=== PATIENT | female | born 2000 | race Caucasian/White ===

== ENCOUNTER 2023-09-11 07:36 | Emergency (ER) | payer BC ==
[~2023-09-11] VITALS: Ht 162.6 cm; Wt 100.0 kg
[2023-09-11 07:45] VITALS: TEMP 97.8
[2023-09-11 07:58] LABS: COLLECTION METHOD CLEAN CATCH
[2023-09-11] MEDS ORDERED: Acetaminophen 500 MG TAB PO ONE (08:00)
[2023-09-11 08:17] LABS: URINE APPEARANCE Hazy (CLEAR/HAZY); URINE COLOR Amber (YELLOW)
[2023-09-11 08:18] LABS: SQUAMOUS EPITHELIAL 0-2 /hpf (0-10); URINE BLOOD 3+ (NEGATIVE); URINE GLUCOSE Negative (NEGATIVE); URINE KETONE Negative (NEGATIVE); URINE NITRATE Negative (NEGATIVE); URINE PROTEIN(semi-quant) 2+ (NEGATIVE); URINE RBC >50 /hpf (0-2); URINE UROBILINOGEN 0.2 E.U/dL (0.2-1.0)
[2023-09-11] MEDS ORDERED: PYRIDIUM200 M1 PO (08:22)
[2023-09-11] MEDS ORDERED: CEFTIN500 MG PO (08:22)
[2023-09-11] MEDS ORDERED: Cefuroxime 250 MG TAB PO ONE (08:30)
[2023-09-11 08:32] VITALS: BP 149/98; PULSE 92
== END 2023-09-11 08:22 | disposition home or self-care (01) ==
LOC: COL.ER 07:36
PROVIDERS: Emergency Medicine
DX: N39.0 Urinary tract infection, site not specified (principal); R31.9 Hematuria, unspecified

== ENCOUNTER 2024-01-08 18:02 | Emergency (ER) | payer BC ==
[~2024-01-08] VITALS: Ht 160 cm; Wt 102.3 kg
[~2024-01-08 18:02] MED LIST: CEFTIN500 MG PO; PYRIDIUM200 M1 PO
[2024-01-08 18:05] VITALS: TEMP 98.1
[2024-01-08] MEDS ORDERED: Ondansetron 4 MG/2 ML VIAL IV ONE ×2 (18:30→20:15)
[2024-01-08] MEDS ORDERED: NS 1,000 ML IV ONE (18:30)
[2024-01-08] MEDS ORDERED: HYDROmorphone 0.5 MG/0.5 ML SYRINGE IV ONE ×2 (18:30→20:00)
[2024-01-08 18:36] LABS: COLLECTION METHOD CLEAN CATCH
[2024-01-08 18:47] LABS: BASO # 0.1 K/mm3 (0.0-0.2); BASO % 0.8 % (0.0-2.0); EOS # 0.3 K/mm3 (0.0-0.7); EOS % 3.6 % (0.0-4.0); GRAN # 4.3 K/mm3 (1.4-6.5); GRAN % 48.7 % (42.2-75.2); HEMATOCRIT 43.7 % (37.0-47.0); HEMOGLOBIN 14.8 g/dl (12.5-16.0); LYMPH # 3.3 K/mm3 (1.2-3.4); MEAN CELL VOLUME 90 fl (80.0-100.0); MEAN CORPUSCULAR HEMOGLOBIN 31 pg (27-31); MEAN CORPUSCULAR HGB CONC 34 g/dl (33.0-37.0); MEAN PLATELET VOLUME 9.1 fl (7.4-10.4); MONO # 0.9 K/mm3 (0.1-0.6); MONO % 9.7 % (1.7-9.3); PLATELET COUNT 564 K/mm3 (130-400); RED BLOOD COUNT 4.84 M/mm3 (4.10-5.30); REDCELL DISTRIBUTION WIDTH-CV 11.8 % (11.5-14.5)
[2024-01-08 18:56] LABS: URINE APPEARANCE TURBID (CLEAR/HAZY); URINE BLOOD 2+ (NEGATIVE); URINE COLOR Dark Yellow (YELLOW); URINE GLUCOSE NEGATIVE (NEGATIVE); URINE KETONE TRACE (NEGATIVE); URINE NITRATE NEGATIVE (NEGATIVE); URINE PROTEIN(semi-quant) 1+ (NEGATIVE); URINE UROBILINOGEN 0.2 E.U/dL (0.2-1.0)
[2024-01-08 19:04] LABS: ALBUMIN 4.4 g/dL (3.5-5.0); BILIRUBIN,TOTAL 0.9 mg/dL (0.2-1.2); CALCIUM 10.6 mg/dL (8.4-10.2); CREATININE, serum 1.07 mg/dL (0.57-1.11); TOTAL PROTEIN 8.4 g/dl (6.2-8.1)
[2024-01-08 19:09] LABS: URINE CALCIUM OXALATE CRYSTAL PRESENT (NOT PRESENT)
[2024-01-08] MEDS ORDERED: fentaNYL 50 MCG/ML 2 ML VIAL IV ONE (19:15)
[2024-01-08] MEDS ORDERED: Iohexol 300 - 100 ML VIAL IV ONE (19:43)
[2024-01-08] MEDS ORDERED: NS 100 ML IV SCH (19:44)
[2024-01-08] MEDS ORDERED: Ketorolac 15 MG/ML VIAL IV ONE (20:00)
[2024-01-08] MEDS ORDERED: cefTRIAXone 1 G in Water For Injection,Sterile 10 ML IV ONE (20:00)
[2024-01-08] MEDS ORDERED: Home Ondansetron ODT 4 MG #2 ODT/PACK PO ONE (20:30)
[2024-01-08] MEDS ORDERED: Home HYDROcodone/Acetaminophen 5/325 MG #4 TABS/PACK PO ONE (20:30)
[2024-01-08 21:08] VITALS: BP 131/89; PULSE 89
== END 2024-01-08 21:14 | disposition home or self-care (01) ==
LOC: COL.ER 18:02
PROVIDERS: Nurse Practitioner
DX: N20.0 Calculus of kidney (principal)
CPT/HCPCS: J0696; J1170; J1885; J2405; J3010; J7030; Q9967